=== PATIENT | female | born 1980 | race Caucasian/White ===

== ENCOUNTER 2016-12-25 08:40 | Emergency (ER) | payer OTHER ==
[~2016-12-25] VITALS: Ht 172.7 cm; Wt 89.4 kg
[~2016-12-25 08:40] MED LIST: PHEN37.599 PO; WARF3TAB PO
[2016-12-25 08:50] VITALS: BP 161/74
--- NOTE | 2016-12-25 09:25 | PHYS DOC ---
Past Medical History Past Medical History: Anxiety Additional Past Medical Histor: DVT 01/30 Past Surgical History: Other Additional Past Surgical Histo: Right knee acl repair, right lumpectomy Smoking: Less than 1pk/day Alcohol Use: Occasionally Drug Use: None Adult General Chief Complaint Chief Complaint: HEADACHE HPI HPI Patient is a 36 year old female who presents with pressure in the left temporal region starting last night. She states that it "feels cold underneath, like a dripping." She has a history of migraines and states that this is different from her usual migraines. She was on [employer] last night looking up her symptoms and is concerned about the change in the nature from her usual migraines. She denies any associated symptoms, specifically no vision changes, photophobia, nausea, vomiting, neck pain, otalgia, tinnitus, fever, focal weakness or numbness, or dizziness. Her PCP is Dr. Menon. She does not see a neurologist for her migraines. Review of Systems Review of Systems Constitutional: Denies fever or chills. [] Eyes: Denies change in visual acuity, redness, or eye pain. Denies photophobia. HENT: Denies ear pain, nasal congestion or sore throat. Denies tinnitus. Respiratory: Denies cough or shortness of breath. [] Cardiovascular: Denies chest pain, palpitations or edema. [] GI: Denies abdominal pain, nausea, vomiting [] : Denies dysuria, hematuria or urinary frequency. [] Musculoskeletal: Denies back pain or joint pain. Denies neck pain. Integument: Denies rash or skin lesions. [] Neurologic: Denies dizziness, focal weakness or sensory changes. [] Endocrine: Denies polyuria or polydipsia. [] Psych: Denies anxiety or depression. [] All systems reviewed and negative unless otherwise stated in the HPI. Allergies Allergies Allergies Coded Allergies Type Severity Reaction Last Updated Verified Sulfa (Sulfonamide Antibiotics) Allergy Severe Anaphylaxis 02/14/14 Yes morphine Allergy Unknown 02/14/14 Yes Physical Exam Physical Exam Constitutional: Well developed, well nourished, no acute distress, non-toxic appearance. [] HENT: Normocephalic, atraumatic, bilateral external ears normal, oropharynx moist, no oral exudates, nose normal. Bilateral TMs without erythema or bulging. There is no posterior pharyngeal erythema or tonsillar edema. There is no tenderness over the temporal arteries. Eyes: PERRLA, EOMI, conjunctiva normal, no discharge. [] Neck: Normal range of motion, no tenderness, supple, no stridor. There is no nuchal rigidity or meningeal signs. Cardiovascular: Heart rate regular rhythm, no murmur [] Lungs & Thorax: Bilateral breath sounds clear to auscultation without wheezes, rales, or rhonchi. Abdomen: Bowel sounds normal, soft, no tenderness, no masses, no pulsatile masses. [] Skin: Warm, dry, no erythema, no rash. [] Back: No tenderness, no CVA tenderness. [] Extremities: No tenderness, no cyanosis, no clubbing, ROM intact, no edema. [] Neurologic: Alert and oriented X 3, normal motor function, normal sensory function, no focal deficits noted. CN II-XII grossly intact. Psychologic: Affect normal, judgement normal, mood normal. [] Current Patient Data Vital Signs Vital Signs Date Time Temp Pulse Resp B/P Pulse Ox O2 Delivery O2 Flow Rate FiO2 12/25/16 08:50 98.0 101 18 99 Room Air 98.0 EKG EKG [] Radiology/Procedures Radiology/Procedures [] Course & Med Decision Making Course & Med Decision Making Pertinent Labs and Imaging studies reviewed. (See chart for details) Patient presents with left temporal pressure starting last night without any associated symptoms. On exam, there are no neurologic deficits. We discussed CT scan of the head with or without contrast. We also discussed the risks and benefits of CT scans. She agrees to forego CT scan at this time. Strict return precautions were discussed. She verbalizes understanding and agrees with plan. Dragon Disclaimer Dragon Disclaimer This electronic medical record was generated, in whole or in part, using a voice recognition dictation system. Departure Departure Impression: Primary Impression: Headache Disposition: 01 HOME, SELF-CARE Condition: STABLE Referrals: MONTY MOCK DO (PCP) DALIA ORTIZ MD Patient Instructions: General Headache Without Cause, [id number] Additional Instructions: Your headache today does not appear to be from a serious cause. Please follow-up with the neurologist listed below if your headache continues and for management of your migraines. Return immediately to the emergency department if you have severe, sudden onset headache, weakness or numbness in her body, difficulty with speech, confusion, or other new or concerning signs or symptoms. Problem Qualifiers Primary Impression: Headache Headache type: unspecified Headache chronicity pattern: acute headache Intractability: not intractable Qualified Code: R51 - Headache IVANIA AVELAR Dec 25, 2016 09:25
== END 2016-12-25 09:32 | disposition home or self-care (01) ==
LOC: ER 08:40
DX: R51 Headache (principal); G43.909 Migraine, unspecified, not intractable, without status migrainosus; F41.9 Anxiety disorder, unspecified; F17.200 Nicotine dependence, unspecified, uncomplicated; Z88.2 Allergy status to sulfonamides; Z88.5 Allergy status to narcotic agent
CPT/HCPCS: 99281

== ENCOUNTER 2017-06-22 11:18 | Emergency (ER) | payer OTHER ==
[~2017-06-22] VITALS: Ht 172.7 cm; Wt 88.9 kg
[~2017-06-22 11:18] MED LIST changes: -WARF3TAB PO; +WARF3TAB54 PO
--- NOTE | 2017-06-22 11:42 | PHYS DOC ---
Past Medical History Past Medical History: Anxiety Additional Past Medical Histor: DVT 01/30 Past Surgical History: Other Additional Past Surgical Histo: Right knee acl repair, right lumpectomy Alcohol Use: Occasionally Drug Use: None Adult General Chief Complaint Chief Complaint: LOWER BACK PAIN OR INJURY HPI HPI Patient is a 37 year old female who presents with lower back pain for the past 3 days. Patient states she woke up after sleeping on the couch on Thursday with severe right-sided lower back pain with a history of sciatica. Patient states the pain shot down her right leg. Patient states it is too painful to get and walk therefore laid in bed for the whole weekend urinated in a bedpan. Patient denies any fevers. Patient denies any chest pain shortness of breath. Patient denied any dysuria or abdominal pain. Patient states she was able to come the emergency room today because She is able to get up and walk with significant amount of pain. Patient states she is having no difficulty urinating however has not had a bowel movement since . Patient denies any saddle anesthesia. Patient denies any trauma to the back. Patient has no other complaints. Review of Systems Review of Systems GEN: Denies fevers, chills, sweats HEENT: Denies blurred vision, sore throat CV: Denies chest pain RESP: Denies shortness of air, cough GI: Denies n/v/d NEURO: Denies confusion, dizziness MSK: Lower back pain Current Medications Current Medications Current Medications Medications (Trade) Dose Ordered Sig/Jennifer Start Time Stop Time Status Last Admin Dose Admin Dexamethasone Sodium Phosphate (Decadron) 10 mg 1X ONCE 06/22/17 11:45 06/22/17 11:46 DC 06/22/17 11:51 10 MG Diazepam (Valium) 5 mg 1X ONCE 06/22/17 11:45 06/22/17 11:46 DC 06/22/17 11:52 5 MG Ketorolac Tromethamine (Toradol Im) 60 mg 1X ONCE 06/22/17 11:45 06/22/17 11:46 DC 06/22/17 11:52 60 MG Allergies Allergies Allergies Coded Allergies Type Severity Reaction Last Updated Verified Sulfa (Sulfonamide Antibiotics) Allergy Severe Anaphylaxis 02/14/14 Yes morphine Allergy Unknown 02/14/14 Yes Physical Exam Physical Exam GEN.: Moderate distress. Alert and oriented. HEENT: Head is normocephalic, atraumatic NECK: Supple. LUNGS: CTAB. HEART: RRR, S1, S2 present. Peripheral pulses intact ABDOMEN: Soft, nontender. Positive bowel sounds. EXTREMITIES: Without any cyanosis. NEUROLOGIC: Normal speech, normal tone, no saddle anesthesia, muscle strength 5 over 5 lower extremity bilaterally proximal and distal muscles PSYCHIATRIC: Normal affect, normal mood. SKIN: No ulcerations BACK: Positive tenderness palpation to the right lumbar paraspinous muscles and tenderness palpation to the right SI joint, positive pain to the lower back with straight leg raise at 60 on the right and 80 on the left Current Patient Data Vital Signs Vital Signs Date Time Temp Pulse Resp B/P (MAP) Pulse Ox O2 Delivery O2 Flow Rate FiO2 06/22/17 11:30 98.4 120 18 135/61 (85) 96 Room Air 98.4 EKG EKG [] Radiology/Procedures Radiology/Procedures [] Course & Med Decision Making Course & Med Decision Making Pertinent Labs and Imaging studies reviewed. (See chart for details) ED course: Patient was seen and examined emergency room 60 mg of Toradol, 5 mg of Valium by mouth were given 1225: Patient was reevaluated and states she feels much better and is ready go home. Patient states her back pain has improved. Recommended short-term follow- up with her PCP in one to 2 days. MDM: After reviewing the chart, CC/HPI/PMH, physical exam, I do not believe the patient has significant back injury warranting further workup and/or admission at this time. Based on the patient's physical exam findings and history of present illness I do not believe the patient needs a CT scan, x-ray, MRI of the L-spine at this time. I have very low suspicion for cauda equina or cord compression syndrome. On reexamination the patient's back pain has improved and recommended short-term follow-up with PCP in one to 2 days. Additional verbal discharge instructions were provided to the patient and that if symptoms get worse or any new symptoms arise that are worrisome to the patient she is to return to the emergency room immediately [] Dragon Disclaimer Dragon Disclaimer This electronic medical record was generated, in whole or in part, using a voice recognition dictation system. Departure Departure Impression: Primary Impression: Lower back pain Additional Impression: Sciatica Disposition: HOME, SELF-CARE Condition: IMPROVED Referrals: MONTY MOCK DO (PCP) Patient Instructions: Back Pain, Adult, [id number] Additional Instructions: Please follow up with your family physician in one to 2 days Scripts Diazepam (VALIUM) 5 Mg Tablet 5 MG PO TID for 5 Days, #15 TAB Prov: NOE CABRERA DO 06/22/17 Prednisone (PREDNISONE) 50 Mg Tablet 1 TAB PO DAILY, #5 TAB Prov: NOE CABRERA DO 06/22/17 Ibuprofen (IBUPROFEN) 800 Mg Tablet 800 MG PO PRN Q6HRS Y for INFLAMMATION for 10 Days, #40 TAB Prov: NOE CABRERA DO 06/22/17 Problem Qualifiers NOE CABRERA DO Jun 22, 2017 11:42
[2017-06-22] MEDS ORDERED: KETOROLAC TROMETHAMINE 60 MG/2 ML INJ. IM ONE (11:45)
[2017-06-22] MEDS ORDERED: diazePAM 5 MG TABLET PO ONE (11:45)
[2017-06-22] MEDS ORDERED: DEXAMETHASONE SOD PHOS 4 MG/ML VIAL IM ONE (11:45)
[2017-06-22 12:30] VITALS: BP 113/57
[2017-06-22] MEDS ORDERED: DIAZ5TAB PO (12:30)
[2017-06-22] MEDS ORDERED: PRED50TA PO (12:30)
[2017-06-22] MEDS ORDERED: IBUP-1060 PO (12:30)
== END 2017-06-22 12:37 | disposition home or self-care (01) ==
LOC: ER 11:18
DX: M54.41 Lumbago with sciatica, right side (principal); Z86.718 Personal history of other venous thrombosis and embolism; Z88.2 Allergy status to sulfonamides; Z88.5 Allergy status to narcotic agent
CPT/HCPCS: 96372; 99284; J1100; J1885

== ENCOUNTER 2018-04-30 21:32 | Emergency (ER) | payer SELFPAY, OTHER, BC | END 2018-04-30 22:43 | disposition home or self-care (01) | LOC: ER 21:32 | DX: K02.9 Dental caries, unspecified (principal); F41.9 Anxiety disorder, unspecified; Z88.5 Allergy status to narcotic agent; Z88.2 Allergy status to sulfonamides | CPT/HCPCS: 99283 ==

== ENCOUNTER 2021-08-13 01:54 | Emergency (ER) | payer SELFPAY ==
[2018-04-30 22:00] VITALS: BP 130/78
[~2021-08-13 01:54] MED LIST changes: +DIAZ5TAB PO; +IBUP-1060 PO; +METR500T PO; +NAPR500T8 PO; +PENI500T PO; +PRED50TA PO
== END 2021-08-13 02:34 | disposition left against medical advice (07) ==
LOC: ER 01:54
DX: R22.42 Localized swelling, mass and lump, left lower limb (principal); R07.89 Other chest pain; Z53.21 Procedure and treatment not carried out due to patient leaving prior to being seen by health care provider